=== PATIENT | female | born 1995 | race African-American/Black ===

== ENCOUNTER 2023-12-31 10:00 | Inpatient (IN) | payer BC ==
[2024-01-05] MEDS ORDERED: Bupivacaine 0.25% HCL 30 ML VIAL ONE (06:51)
[2024-01-05] MEDS ORDERED: EPINEPHrine 1 MG/ML VIAL ONE (06:51)
[2024-01-05] MEDS ORDERED: PROPOFOL 20 ML ONE (07:05)
[2024-01-05] MEDS ORDERED: fentaNYL PF 100 MCG/2 ML SYRINGE ONE (07:05)
[2024-01-05] MEDS ORDERED: Rocuronium Bromide 10 MG/ML (10ML VIAL) ONE (07:05)
[2024-01-05] MEDS ORDERED: Lidocaine 1% PF 5 ML VIAL ONE (07:05)
[2024-01-05] MEDS ORDERED: CEFAZOLIN 2 GM VIAL ONE (07:28)
[2024-01-05] MEDS ORDERED: Sodium Chloride 0.9% 100 ML ONE (07:28)
[2024-01-05] MEDS ORDERED: Heparin 5,000 UNITS/ML VIAL ONE (07:33)
[2024-01-05] MEDS ORDERED: Dexamethasone 20 MG/5 ML VIAL ONE (08:01)
[2024-01-05] MEDS ORDERED: PHENYLEPHRINE-NS 100 MCG/ML 10 ML SYRINGE ONE (08:01)
[2024-01-05] MEDS ORDERED: Promethazine HCl 25 MG/ML VIAL IM PRN ×3 (08:27→12:22)
[2024-01-05] MEDS ORDERED: Naloxone HCl 0.4 mg/ml Vial IV PRN (08:27)
[2024-01-05] MEDS ORDERED: Ondansetron HCl/PF 4 MG/2 ML Vial IVP PRN (08:27)
[2024-01-05] MEDS ORDERED: Ondansetron PF 4 MG/2 ML Vial IVP PRN ×2 (08:27→12:22)
[2024-01-05] MEDS ORDERED: FENTANYL 500 MCG/10 ML VIAL 2,000 MCG in Sodium Chloride 0.9% 60 ML IV PRN (08:27)
[2024-01-05] MEDS ORDERED: diphenhydrAMINE 25 MG CAP PO PRN (08:27)
[2024-01-05] MEDS ORDERED: diphenhydrAMINE 50 MG/ML VIAL IVP PRN ×2 (08:27→12:22)
[2024-01-05] MEDS ORDERED: diphenhydrAMINE 50 MG/ML VIAL IM PRN (08:27)
[2024-01-05] MEDS ORDERED: Communication Order-Pharmacy FS SCH (08:30)
[2024-01-05] MEDS ORDERED: Ondansetron PF 4 MG/2 ML Vial ONE ×2 (09:08→09:09)
[2024-01-05] MEDS ORDERED: HYDROmorphone 2 MG/ML VIAL ONE (09:09)
[2024-01-05] MEDS ORDERED: fentaNYL 50 mcg/mL 1 mL Vial ONE ×2 (09:09→09:31)
[2024-01-05] MEDS ORDERED: SUGAMMADEX SODIUM 200 MG/2 ML VIAL ONE (09:09)
[2024-01-05] MEDS ORDERED: Ketorolac Tromethamine 30 MG (1 mL) VIAL ONE (10:08)
[2024-01-05] MEDS ORDERED: Dextrose 5% in Water 1,000 ML IV PRN (12:22)
[2024-01-05] MEDS ORDERED: Glucagon 1 MG/ML KIT IM PRN (12:22)
[2024-01-05] MEDS ORDERED: Dextrose 50% Abboject 50 ML SYRINGE SLOW IVP PRN (12:22)
[2024-01-05] MEDS ORDERED: Ipratropium/Albuterol 3 ML NEB NEB PRN (12:22)
[2024-01-05] MEDS ORDERED: hydrALAZINE 20 MG/ML VIAL SLOW IVP PRN (12:22)
[2024-01-05 12:25] VITALS: BMI 46.9
[2024-01-05] MEDS: D5 1/2 NS w/20 mEq KCL 1,000 ML IV SCH (15:40)
[2024-01-05] MEDS: Ketorolac Tromethamine 30 MG (1 mL) VIAL IVP SCH (18:03)
[2024-01-06 06:18] LABS: #Basophils Less than 0.03 10x3/uL (0.0-0.2); #Eosinphils Less than 0.03 10x3/uL (0.0-0.7); %Basophils 0.3 % (0.0-1.0); %Eosinophils 0.3 % (0.0-10.0); %Lymphocytes 24.8 % (21.0-51.0); %Monocytes 6.3 % (0.0-10.0); Hematocrit 35.9 % (36.0-47.0); Hemoglobin 11.8 g/dL (12.0-16.0); Mean Corpuscular HGB CONC 32.9 g/dL (32.0-36.0); Mean Corpuscular Hemoglobin 28.1 pg (27.0-31.0); Mean Corpuscular Volume 85.5 fL (78.0-98.0); Mean Platelet Volume 9.8 fL (7.4-10.4); Platelet Count 199 10x3/uL (130-400); RBC Distribution Width 14.7 % (11.5-14.5)
[2024-01-06 06:33] LABS: Anion Gap 12 mmol/L (10-20); BUN (Urea Nitrogen) 7 mg/dL (7.0-18.7); Calc. Creatinine Clearance 171 mL/min (70-130); Calcium 8.9 mg/dL (7.8-10.44); Carbon Dioxide 21 mmol/L (22-29); Chloride 110 mmol/L (98-107); Estimated GFR 80; Glucose 94 mg/dL (70-105); Potassium 4.5 mmol/L (3.5-5.1); Sodium 138 mmol/L (136-145)
[2024-01-06] MEDS: Hydrocodone-Acetamin 15 ML UDCUP PO PRN (08:03)
[2024-01-06] MEDS: Enoxaparin 40 MG (0.4 mL) SYRINGE SC SCH (08:03)
[2024-01-06] MEDS: Pantoprazole 40 MG VIAL IVP SCH (08:03)
[2024-01-06 08:37] VITALS: TEMP 98.6
[2024-01-06 11:44] VITALS: BP 126/80
== END 2024-01-06 11:48 | disposition home or self-care (01) | DRG 621 ==
LOC: SURG A 01-05 06:01 → SURG B 01-05 11:27
PROVIDERS: ADMIT Surgery; ATTEND Surgery
PROC: 0DB64Z3 Excision of Stomach, Percutaneous Endoscopic Approach, Vertical (ICD-10-PCS; principal; 2024-01-05)
PROC: 8E0W4CZ Robotic Assisted Procedure of Trunk Region, Percutaneous Endoscopic Approach (ICD-10-PCS; 2024-01-05)
PROC: 3E033XZ Introduction of Vasopressor into Peripheral Vein, Percutaneous Approach (ICD-10-PCS; 2024-01-05)
DX: E66.01 Morbid (severe) obesity due to excess calories (principal); Z68.42 Body mass index [BMI] 45.0-49.9, adult
CPT/HCPCS: 36415; 80048; 85025; 88307; 94760; C9113; J0171; J0665; J1100; J1170; J1644; J1650; J1885; J2405; J2704; J3010; J3480; J3490

== ENCOUNTER 2024-01-04 14:36 | Outpatient (CLI) | payer BC ==
[2024-01-04 16:00] LABS: #Basophils 0.06 10x3/uL (0.0-0.2); #Eosinphils 0.02 10x3/uL (0.0-0.5); #Neutrophils 3.58 10x3/uL (1.5-8.4); %Basophils 0.9 % (0.0-2.0); %Eosinophils 0.3 % (0.0-6.0); %Lymphocytes 36.2 % (18.0-47.0); %Monocytes 6.3 % (0.0-10.0); Hematocrit 38.2 % (34.9-44.5); Hemoglobin 13.1 g/dL (12.0-15.5); Mean Corpuscular HGB CONC 34.3 g/dL (32.0-36.0); Mean Corpuscular Hemoglobin 28.5 pg (27.0-33.0); Mean Platelet Volume 10.8 fl (7.4-10.4); Platelet Count 267 10x3/uL (150-450); RBC Distribution Width 14.6 % (11.5-14.5); White Blood Cell (WBC) Count 6.4 10x3/uL (3.5-10.5)
[2024-01-04 16:23] LABS: BHCG - Serum Negative (NEGATIVE); Pregs Control Background? CLEAR/WHITE (CLR/WHITE); Pregs Control Bar Appear? YES (CONTROL BAR)
[2024-01-04 16:32] LABS: ALT (SGPT) 12 U/L (8-55); AST (SGOT) 19 U/L (5-34); Albumin 3.9 g/dL (3.5-5.0); Alkaline Phosphatase 68 U/L (40-110); Anion Gap 12 mmol/L (10-20); BUN (Urea Nitrogen) 13 mg/dL (7.0-18.7); Bilirubin, Total 0.6 mg/dL (0.2-1.2); Calc. Creatinine Clearance 0 mL/min (70-130); Calcium 9.2 mg/dL (7.8-10.44); Carbon Dioxide 20 mmol/L (22-29); Chloride 108 mmol/L (98-107); Estimated GFR 76; Globulin 3.3 g/dL (2.4-3.5); Glucose 86 mg/dL (70-105); Potassium 4.3 mmol/L (3.5-5.1); Protein, Total 7.2 g/dL (6.0-8.3); Sodium 136 mmol/L (136-145)
== END 2024-01-04 14:37 | disposition home or self-care (01) ==
LOC: LABBT 14:36
PROVIDERS: ATTEND Surgery
DX: Z01.818 Encounter for other preprocedural examination (principal); E66.01 Morbid (severe) obesity due to excess calories
CPT/HCPCS: 80053; 83036; 84703; 85025; 93005; 93010